=== PATIENT | female | born 1960 | race Hispanic/Latino ===

== ENCOUNTER → 2024-10-30 | Outpatient (CLI) | payer OTHER ==
--- NOTE | 2024-10-30 16:20 | HMCIMG ---
Exam Type: CHEST 2VWS Clinical Information: PRE-OP Comparison: None Findings: The lungs are clear of infiltrates. The heart is normal in size. The bony and soft tissue structures of the chest are unremarkable. Impression: Clear lungs.
== END | disposition home or self-care (01) ==
LOC: RAH 15:27
PROVIDERS: ATTEND Family Medicine
DX: Z01.810 Encounter for preprocedural cardiovascular examination (principal)
CPT/HCPCS: 71046

== ENCOUNTER → 2025-06-29 | Outpatient (CLI) | payer OTHER ==
[~2025-06-29] MED LIST: GADOTERATE MEGLUMINE 5 MMOL/10 ML VIAL IV ONE
--- NOTE | 2025-07-01 11:32 | HMCIMG ---
EXAM: MR Lumbar Spine Without and With Intravenous Contrast. CLINICAL HISTORY: Lumbar radiculopathy. TECHNIQUE: Magnetic resonance images of the lumbar spine in multiple planes without and with Intravenous Contrast. COMPARISON: None. FINDINGS: For this examination, spinal levels were labeled assuming five [id number], lumbar-type vertebrae, with the inferior labeled L5. No acute fracture. Mild straightening of the expected lumbar lordosis reflects paraspinal muscle spasm. Mild multilevel spondylosis is evident by small marginal osteophytes and facet joint arthropathy. Multilevel disc desiccation noted. Normal vertebral body and disc heights. Well-defined, enhancing lesions measuring approximately 1.4 x 0.8 cm, 0.8 x 0.7 cm, and 2.1 x 1.2 cm in the T12, L5, and S2 vertebral bodies, likely hemangiomas. Conus medullaris terminates at the L1 level. No abnormal epidural masses. Small, simple cortical cyst in the left kidney. Individual spinal levels are described as follows: T12-L1: No disc bulge or herniation. No neural foraminal, lateral recess, or spinal canal stenosis. L1-L2: No disc bulge or herniation. No neural foraminal, lateral recess, or spinal canal stenosis. L2-L3: No disc bulge or herniation. No neural foraminal, lateral recess, or spinal canal stenosis. L3-L4: 4 mm left paracentral disc bulge causing mild indentation on the anterior thecal sac and abutment of the traversing intrathecal left L4 nerve root. No neural foraminal stenosis. L4-L5: 1 mm disc osteophyte complex bulge causing mild indentation on the anterior thecal sac. No neural foraminal or lateral recess stenosis. L5-S1: 2 mm disc osteophyte complex bulge causing mild indentation on the anterior thecal sac. No neural foraminal or lateral recess stenosis. IMPRESSION: Mild straightening of the expected lumbar lordosis reflects paraspinal muscle spasm. Mild multilevel spondylosis. Well-defined, enhancing lesions measuring approximately 1.4 x 0.8 cm, 0.8 x 0.7 cm, and 2.1 x 1.2 cm in the T12, L5, and S2 vertebral bodies, likely hemangiomas. Mild indentation on the anterior thecal sac and abutment of the traversing intrathecal left L4 nerve root at the L3-L4 level. Mild indentation on the anterior thecal sac at the L4-L5 and L5-S1 levels. /[place]
== END | disposition home or self-care (01) ==
LOC: RAH 10:37
PROVIDERS: ATTEND Family Medicine
DX: M51.17 Intervertebral disc disorders with radiculopathy, lumbosacral region (principal); M47.26 Other spondylosis with radiculopathy, lumbar region; M40.46 Postural lordosis, lumbar region; N28.1 Cyst of kidney, acquired
CPT/HCPCS: 72158; A9575

== ENCOUNTER → 2025-08-13 | Outpatient (CLI) | payer OTHER ==
--- NOTE | 2025-08-14 00:33 | HMCSR ---
APPROVED REPORT EXAM: Two-dimensional and M-mode echocardiogram with Doppler and color Doppler. INDICATION ICD: I25.2 Old myocardial infarction 2D Dimensions RVDd3.4 cmLVEF(%)71.8 (>50%)LVED Vol(simp.)103.0 mL IVSd0.8 (0.7-1.1cm)FS(%)40 %LVES Vol(simp.)42.0 mL LVDd4.0 (3.8-5.6cm)LA (2D)3.0 (1.6-4.0cm)LVEF(%, simp.)59 % PWd1.0 (0.7-1.1cm)Ao Root(2D)2.8 (2.0-3.7cm)LA ESV INDEX (BP)26.77 mL/m2 LVDs2.4 (2.5-4.0cm)LVOT diam2.1 (1.8-2.4cm) IVC diam1.6 cm M-Mode Dimensions EPSS0.6 cm LA (MM)3.7 (1.6-4.0cm) Ao Root(MM)2.6 (2.0-3.7cm) Aortic Valve AoV Vmax1.3 m/Gwen Peak GR6.9 mmHgLVOT Vmax1.0 m/s AoV VTI0.3 mAo Mean GR3.6 mmHgLVOT VTI0.21 m LUIS (VMAX)2.56 cm2AVA (VTI) 2.7 cm2 Mitral Valve MV E Vmax66.8 cm/sDECEL Nriy016 ms MV A Vmax94.8 cm/sP 1/2 T69 ms E/A ratio0.7MVA (PHT)3.2 cm2 TDI E/E' Medial9.0E/E' Igpmqgv56.5 Medial E' Peak V7.42 cm/sLateral E' Peak V5.33 cm/s Tricuspid Valve RAP (EST) 3 mmHgRVSP3.0 mmHg Left Ventricle The left ventricle is normal size. No regional wall motion abnormalities noted. Mild concentric left ventricular hypertrophy. Sigmoid shaped septum noted. Left ventricle systolic function is low normal, estimated LVEF 50 to 55%. Stage I diastolic dysfunction. Right Ventricle The right ventricle is normal size. The right ventricular systolic function is normal. Atria The left atrium size is normal. The right atrium size is normal. Aortic Valve Aortic valve is trileaflet. Trace aortic regurgitation. There is no aortic valvular stenosis. Mitral Valve Mild mitral annular calcification is noted. The leaflets are mildly thickened and calcified. Trace mi tral regurgitation. There is no mitral valve stenosis. Tricuspid Valve The tricuspid valve is normal in structure. Trace tricuspid regurgitation. RVSP is normal. Pulmonic Valve Pulmonic valve is not well visualized. The Great Vessels The aortic root is normal in size. The IVC is normal in size and collapses >50% with inspiration. Pericardium There is no pericardial effusion. Other Information Quality : Adequate Conclusion Mild concentric left ventricular hypertrophy. Sigmoid shaped septum noted. No regional wall motion abnormalities noted. Left ventricle systolic function is low normal, estimated LVEF 50 to 55%. Stage I diastolic dysfunction. Trace aortic regurgitation. Trace mitral regurgitation. Trace tricuspid regurgitation. PASP is normal. There is no pericardial effusion.
== END | disposition home or self-care (01) ==
LOC: RAH 14:43
PROVIDERS: ATTEND Family Medicine
DX: I34.0 Nonrheumatic mitral (valve) insufficiency (principal); I25.2 Old myocardial infarction
CPT/HCPCS: 93306

== ENCOUNTER → 2025-08-31 | Outpatient (CLI) | payer OTHER ==
--- NOTE | 2025-09-01 09:41 | HMCIMG ---
US CAROTID DUPLEX REASON: Old myocardial infarction TECHNIQUE: Exam was performed using spectral analysis and color flow imaging. FINDINGS: Color flow Doppler ultrasound shows normal-appearing bifurcations. There is no anatomic evidence of significant focal narrowing. Flow velocities and velocity ratios appear normal throughout. There is antegrade flow in both vertebral arteries. RIGHT CAROTID: CCA: 103 cm/sec ICA: 131 cm/sec Ratio: ICA/CCA: 1.3 ECA: 84 cm/sec Vertebral artery: Antegrade LEFT CAROTID: CCA: 82 cm/sec ICA: 107 cm/sec Ratio: ICA/CCA: 1.3 ECA: 73 cm/sec Vertebral artery: Antegrade flow IMPRESSION: Normal bilateral carotid Doppler ultrasound.
== END | disposition home or self-care (01) ==
LOC: RAH 14:02
PROVIDERS: ATTEND Family Medicine
DX: I65.03 Occlusion and stenosis of bilateral vertebral arteries (principal); I25.2 Old myocardial infarction
CPT/HCPCS: 93880

== ENCOUNTER → 2025-10-17 | Outpatient (CLI) | payer OTHER ==
[~2025-10-17] MED LIST changes: -GADOTERATE MEGLUMINE 5 MMOL/10 ML VIAL IV ONE; +IOHEXOL 350 MG/ML 100ML INFUS..BTL IV ONE
--- NOTE | 2025-10-19 12:15 | CARDIOLOGY ---
RAD REPORT: CORNARY CT ANGIO RADIOLOGY REPORT: CORONARY CT ANGIOGRAPHY DATE: Oct 19, 2025 QUALITY: Excellent CLINICAL HISTORY AND INDICATION: [ chest pain, shortness of breath ] TECHNIQUE: After obtaining a preliminary land acquisition specialist image, contrast imaging performed on an [employer] [id number] scanner. A dedicated, limited window, coronary imaging protocol was used, with single breath-hold, retrospective ECG gating, and automated arrhythmia rejection. 100 cc of low osmolar contrast agent: Omnipaque 350 was delivered via a 18-gauge IV catheter in the right antecubital fossa, using a power injector and followed by 60 cc of normal saline bolus as a chaser. Collimated images were reformatted at 0.5 mm intervals, and sent to an offline independent workstation for interpretation, using 3D anatomic reconstructions: Curved multiplanar reconstructions, maximum intensity projections, and multiplanar imaging. No metoprolol was administered prior to scanning due to low baseline heart rate. 0.8 mg SL nitroglycerin was given. CORONARY ARTERY DESCRIPTIONS: The coronary arteries arise in normal position. Left main coronary artery: Normal caliber vessel that bifurcates into the LAD and LCx. No stenosis. Left anterior descending coronary artery: Normal caliber vessel and gives rise to diagonal and septal branches. There is calcified plaque in the proximal LAD with 20-30% stenosis. Left circumflex coronary artery: Normal caliber, nondominant and gives rise to two OM branches. No stenosis. Right coronary artery: Large, dominant vessel giving rise to the PL and PDA branches. No stenosis. CAD-RADs: 2, mild non-obstructive CAD. Thoracic Aorta: Normal diameter. Tessa Lyles MD [facility] TESSA LYLES MD Oct 19, 2025 12:15
== END | disposition home or self-care (01) ==
LOC: RAH 08:47
PROVIDERS: ATTEND Internal Medicine Cardiovascular Disease
DX: I47.10 Supraventricular tachycardia, unspecified (principal); R07.9 Chest pain, unspecified
CPT/HCPCS: 75574; Q9967